=== PATIENT | male | born 1950 | race Caucasian/White ===

== ENCOUNTER 2019-07-17 09:28 | Outpatient (CLI) | payer OTHER ==
[2019-07-17] MEDS ORDERED: Magnevist 469MG/ML 20 ML VIAL ONE (10:55)
--- NOTE | 2019-07-17 11:42 | MRI ---
MR OF THE PELVIS WITH AND WITHOUT CONTRAST INDICATION: Elevated PSA COMPARISON: None TECHNIQUE: Multiplanar, multisequence MR images were obtained of the pelvis with and without IV contr ast. 20 cc of MultiHance was utilized for the examination. The examination was reviewed on a separate [employer] 3-D workstation for multiplanar metric evaluation. FINDINGS: Prostate size: The prostate measured 5.5 x 4.1 x 4.9cm. 50.56 cc. Peripheral zone: There is prominent motion artifact on the thin section axial, coronal and sagittal T 2-weighted images that heavily limits the image detail. No definite suspicious peripheral zone lesion is identified. Motion artifact also limits image detail on the ADC and diffusion weighted imag es. Central zone: No suspicious signal abnormality or focal lesion. Neural vasculature: No evidence of neurovascular invasion Regional lymphadenopathy: None Dynamic contrast enhancement: There is diffuse nonspecific increase dynamic contrast enhancement invo lving the peripheral zone as well as portions of the mid central zone. Osseous structures: There is a small focal 11 mm T1 hypointensity that demonstrates enhancement in th e right pubic body. There are additional regions of mild intermediate to low signal intensity involving the bone marrow of the pelvis Additional findings: None.. IMPRESSION: 1. Prominent motion artifact on the T2-weighted images, diffusion-weighted images and ADC images heav s[place] limits evaluation for clinically significant cancer within the prostate gland. There is no overt evidence to suggest a large prostatic malignancy. 2. Focal T1 hypointense lesion involving the right pubic body with enhancement. This could reflect a small atypical hemangioma; however, metastatic disease is of concern. Bone scan is recommended for further characterization. Nonfocal transrectal prostate biopsy is also recommended.
== END 2019-07-17 09:29 | disposition home or self-care (01) ==
LOC: TBSIIMAG 09:28
DX: R97.20 Elevated prostate specific antigen [PSA] (principal); M89.9 Disorder of bone, unspecified
CPT/HCPCS: 72197; 82565; A9579